=== PATIENT | female | born 1975 | race Caucasian/White ===

== ENCOUNTER 2017-01-25 02:19 | Emergency (ER) | payer MEDICAID ==
[~2017-01-25] VITALS: Ht 157.5 cm; Wt 54.0 kg
[~2017-01-25 02:19] MED LIST: ATIVAN0.5 MG ORAL; CIPROFLOXACIN500 M2 ORAL; IBUPROFEN600 MG ORAL; NORCO 5-325 TA1 EACH ORAL
[2017-01-25 03:02] VITALS: BP 105/67
[2017-01-25 03:23] LABS: BASOPHILS % (AUTO) 1.3 % (0.0-2.0); LYMPHOCYTES % (AUTO) 35.8 % (20.0-45.0); MEAN CORPUSCULAR HEMOGLOBIN 30.9 PG (27.0-31.0); MEAN CORPUSCULAR HGB CONC 32.8 G/DL (32.0-36.0); MEAN CORPUSCULAR VOLUME 94 FL (80-99); MEAN PLATELET VOLUME 6.2 FL (6.5-10.1); MONOCYTES % (AUTO) 8.5 % (1.0-10.0); NEUTROPHILS % (AUTO) 52.5 % (45.0-75.0); PLATELET COUNT 267 K/UL (150-450); RED BLOOD COUNT 3.96 M/UL (4.20-5.40); RED CELL DISTRIBUTION WIDTH 12.8 % (11.6-14.8); WHITE BLOOD COUNT 7.9 K/UL (4.8-10.8)
[2017-01-25 03:43] LABS: ALANINE AMINOTRANSFERASE 9 U/L (3-33); ALBUMIN/GLOBULIN RATIO 1.6 (1.0-2.7); ANION GAP 15 (5-15); ASPARTATE AMINO TRANSFERASE 11 U/L (5-40); CALCIUM 9.2 mg/dL (8.6-10.2); CARBON DIOXIDE 25 mEQ/L (20-30); CHLORIDE 99 mEQ/L (98-107); CREATININE 0.6 mg/dL (0.5-0.9); GLOMERULAR FILTRATION RATE > 60 mL/min (>60); HEMOLYSIS 6; POTASSIUM 3.6 mEQ/L (3.4-4.9); SODIUM 139 mEQ/L (135-145); TOTAL PROTEIN 6.9 g/dL (6.6-8.7)
[2017-01-25] MEDS ORDERED: Morphine Sulfate 4mg/ml Inj IVP ONE (04:30)
--- NOTE | 2017-01-25 04:37 | Emergency Room Report ---
History of Present Illness General Chief Complaint: Headache Source: Patient Present Illness HPI 41 YOF with previous right anerysm s/p coiling presents with 1 day right sided headache with nausea/vomiting. Denies fever/chills, neck pain/stiffness, chest pain, SOB, abd pain. Feels well otherwise. Allergies: Coded Allergies: No Known Allergies (Unverified , 11/28/14) Patient History Past Medical History: other - Brain aneurysm Past Surgical History: other - Aneurysm coiling Pertinent Family History: none Social History: Denies: alcohol use, drug use, smoking Last Menstrual Period: Dec Now: No Immunizations: UTD Reviewed Nursing Documentation: PMH: Agreed, PSxH: Agreed Review of Systems All Other Systems: negative except mentioned in HPI Physical Exam Vital Signs Date Time Temp Pulse Resp B/P Pulse Ox O2 Delivery O2 Flow Rate FiO2 01/25/17 02:33 98.2 74 16 112/64 99 Room Air Sp02 EP Interpretation: reviewed, normal General Appearance: normal inspection, well appearing, no apparent distress, alert, GCS 15, non-toxic Head: normocephalic, atraumatic Eyes: bilateral eye EOMI, bilateral eye PERRL ENT: normal ENT inspection, hearing grossly normal, normal voice Neck: normal inspection, full range of motion, supple, no bony tend Respiratory: normal inspection, lungs clear, normal breath sounds, no rhonchi, no respiratory distress, no retraction, no accessory muscle use, no wheezing Cardiovascular #1: regular rate, rhythm, no edema Gastrointestinal: normal inspection, normal bowel sounds, non tender, soft, no guarding, no hernia Genitourinary: no CVA tenderness Musculoskeletal: normal inspection, back normal, normal range of motion, Alexis' s Sign negative Neurologic: normal inspection, alert, oriented x3, responsive, folder seamer automatic III-XII nml as tested, motor strength/tone normal, speech normal Psychiatric: normal inspection, judgement/insight normal, mood/affect normal Skin: normal inspection, normal color, no rash Lymphatic: normal inspection Medical Decision Making Diagnostic Impression: Primary Impression: Headache Qualified Codes: G44.209 - Tension-type headache, unspecified, not intractable ER Course Right sided headache. VSS. Afebrile CT head shows previous aneurysm coil. No acute CVA, ICH Labs: No lueks. H&H stable Patient reassured Was very anxious she had another aneurysm Analgesia provided Low suspicion for SAH or meningitis given well appearance, absence of focal neuro deficits, absence of meningismus, normal vital signs, and duration and intensity of headache. Headache resolved Neuro exam serially negative for focal deficits Vitals stable on discharge F/up with PMD with referral for Neurologist DC home Last Vital Signs Date Time Temp Pulse Resp B/P Pulse Ox O2 Delivery O2 Flow Rate FiO2 01/25/17 03:02 98.2 67 15 105/67 99 Room Air Status: improved Disposition: HOME, SELF-CARE Referrals: NOT CHOSEN [facility]/,REFERRING (PCP) JORDEN EMERY M.D. Jan 25, 2017 04:37
[2017-01-25] MEDS ORDERED: Oxycodone/Acetaminophen 5-325 ORAL ONE (04:45)
[2017-01-25 05:17] VITALS: BP 112/70
[2017-01-25 05:18] VITALS: BP 112/70
--- NOTE | 2017-01-25 09:28 | Diagnostic Imaging Report ---
Indications: Headache Technique: Spiral acquisitions obtained through the brain. Angled axial and coronal 5 x 5 mm slices were reconstructed. Total dose length product 1404 mGycm. CTDI vol(s) 70 mGy Comparison: None Findings: What are presumably aneurysm coils are seen in the right supraclinoid region. These drops streak artifact which may obscure pathology. No definite acute hemorrhage or edema, mass effect, or midline shift. Normal mcneal-white differentiation. Intact calvarium. Visualized orbits and sinuses are unremarkable. Impression: Evidence of prior aneurysm coiling Negative for acute intracranial bleed or mass effect This agrees with the preliminary interpretation provided overnight by [facility] teleradiology service. The CT scanner at [facility] is accredited by the [employer] and the scans are performed using protocols designed to limit radiation exposure to as low as reasonably achievable to attain images of sufficient resolution adequate for diagnostic evaluation.
== END 2017-01-25 05:20 | disposition home or self-care (01) ==
LOC: EMR 03:01
DX: R51 Headache (principal)
CPT/HCPCS: 36415; 70450; 80053; 85025; 96374; 99284; J2405

== ENCOUNTER 2017-02-11 01:06 | Emergency (ER) | payer MEDICAID ==
[~2017-02-11] VITALS: Ht 157.5 cm; Wt 50.8 kg
[2017-02-11 01:39] LABS: EOSINOPHILS % (AUTO) 1.2 % (0.0-3.0); LYMPHOCYTES % (AUTO) 26.1 % (20.0-45.0); MEAN CORPUSCULAR HGB CONC 32.6 G/DL (32.0-36.0); MEAN CORPUSCULAR VOLUME 95 FL (80-99); MEAN PLATELET VOLUME 5.8 FL (6.5-10.1); MONOCYTES % (AUTO) 7.1 % (1.0-10.0); NEUTROPHILS % (AUTO) 64.7 % (45.0-75.0); PLATELET COUNT 280 K/UL (150-450); RED BLOOD COUNT 4.01 M/UL (4.20-5.40); RED CELL DISTRIBUTION WIDTH 12.8 % (11.6-14.8); WHITE BLOOD COUNT 8.2 K/UL (4.8-10.8)
[2017-02-11] MEDS ORDERED: BUSPIRONE HCL5 M1 ORAL (01:40)
[2017-02-11] MEDS ORDERED: ASPIRIN325 MG ORAL (01:41)
[2017-02-11] MEDS ORDERED: EFFIENT5 MG PO (01:41)
[2017-02-11] MEDS ORDERED: VITAMIN B-121000 MCG PO (01:43)
[2017-02-11] MEDS ORDERED: VITAMIN B 6 PO (01:44)
[2017-02-11] MEDS ORDERED: LORazepam Inj 2mg/ml 1ml IV ONE (01:45)
[2017-02-11 02:05] VITALS: BP 105/64
[2017-02-11 02:15] LABS: ALANINE AMINOTRANSFERASE 9 U/L (3-33); ALBUMIN/GLOBULIN RATIO 1.6 (1.0-2.7); ANION GAP 18 (5-15); ASPARTATE AMINO TRANSFERASE 11 U/L (5-40); CALCIUM 9.3 mg/dL (8.6-10.2); CARBON DIOXIDE 24 mEQ/L (20-30); CHLORIDE 97 mEQ/L (98-107); CREATININE 0.6 mg/dL (0.5-0.9); GLOMERULAR FILTRATION RATE > 60 mL/min (>60); HEMOLYSIS 4; POTASSIUM 3.6 mEQ/L (3.4-4.9); SODIUM 139 mEQ/L (135-145); TOTAL PROTEIN 7.2 g/dL (6.6-8.7)
[2017-02-11 02:16] LABS: TROPONIN I < 0.30 ng/mL (<=0.30)
[2017-02-11 02:25] LABS: CKMB < 1.5 ng/mL (< 3.8)
[2017-02-11] MEDS ORDERED: ATIVAN0.5 MG ORAL (02:34)
[2017-02-11 02:46] VITALS: BP_SYST 105; BP_SYST 110; BP_DIAS 58; BP_DIAS 64
--- NOTE | 2017-02-11 03:02 | Emergency Room Report ---
History of Present Illness General Chief Complaint: Chest Pain Source: Patient Present Illness HPI 41-year-old female presents ED complaining of chest pain. States chest pain started tonight while at rest. Pain is midsternal, sharp, 8 out 10, nonradiating. No other aggravating or relieving factors. Denies shortness of breath. Denies smoking or drug use. Denies history of high blood pressure or diabetes. Patient has history of anxiety. Patient has been here multiple times for similar complaint. Workups have been negative. Denies any other associated symptoms Allergies: Coded Allergies: No Known Allergies (Unverified , 11/28/14) Patient History Past Medical History: psych hx Past Surgical History: none Pertinent Family History: none Social History: Denies: alcohol use, drug use, smoking Now: No Immunizations: UTD Reviewed Nursing Documentation: PMH: Agreed, PSxH: Agreed Nursing Documentation-PMH History Of Psychiatric Problem: Yes - Depression Review of Systems All Other Systems: negative except mentioned in HPI Physical Exam Vital Signs Date Time Temp Pulse Resp B/P Pulse Ox O2 Delivery O2 Flow Rate FiO2 02/11/17 01:11 98.2 87 16 125/69 96 Room Air Sp02 EP Interpretation: reviewed, normal General Appearance: no apparent distress, alert, GCS 15, non-toxic Head: normocephalic, atraumatic Eyes: bilateral eye PERRL, bilateral eye normal inspection ENT: hearing grossly normal, normal pharynx, no angioedema, normal voice Neck: full range of motion, supple/symm/no masses Respiratory: chest non-tender, lungs clear, normal breath sounds, speaking full sentences Cardiovascular #1: regular rate, rhythm, no edema Cardiovascular #2: 2+ carotid (R), 2+ carotid (L), 2+ radial (R), 2+ radial (L) , 2+ dorsalis pedis (R), 2+ dorsalis pedis (L) Gastrointestinal: normal bowel sounds, non tender, soft, non-distended, no guarding, no rebound Rectal: deferred Genitourinary: normal inspection, no CVA tenderness Musculoskeletal: back normal, gait/station normal, normal range of motion, non- tender Neurologic: alert, oriented x3, responsive, motor strength/tone normal, sensory intact, speech normal Psychiatric: judgement/insight normal, memory normal, no suicidal/homicidal ideation, anxious Reflexes: 3+ bicep (R), 3+ bicep (L), 3+ tricep (R), 3+ tricep (L), 3+ knee (R) , 3+ knee (L) Skin: normal color, no rash, warm/dry, well hydrated Lymphatic: no adenopathy Medical Decision Making Diagnostic Impression: Primary Impression: Chest pain Qualified Codes: R07.9 - Chest pain, unspecified Additional Impression: Anxiety ER Course Hospital Course 41-year-old F presents ED complaining of chest pain Differential diagnoses include: Rib fracture, FL/unstable angina, contusion, muscle strain Clinical course Patient placed on stretcher. After initial history and physical I ordered labs , EKG, chest x-ray. given ativan labs reviewed- all electrolytes normal, troponins negative, no leukocytosis, hemoglobin/hematocrit stable EKG - NSR, no acute changes Chest x-ray-no cardiomegaly, no rib fracture, no pneumothorax, no acute process per HEART score, patient is at low risk for acute event given lack of risk factors. Patient can be safely discharged to home pending outpatient followup. Patient has been here multiple times for similar presentation. Workups have been negative I. I feel this is a highly complex case requiring extensive working including EKG/Rhythm strip, Xray/CT/US, Blood/urine lab work, repeat exams while in ED, and administration of strong opiates/narcotics for pain control, admission to hospital or close patient follow up. Diagnosis - chest pain, anxiety Stable and discharged to home with Rx ativan. Instructed to followup with PMD. Return to ED if symptoms recur or worsen Labs Test 02/11/17 01:26 White Blood Count 8.2 K/UL (4.8-10.8) Red Blood Count 4.01 M/UL (4.20-5.40) Hemoglobin 12.4 G/DL (12.0-16.0) Hematocrit 38.1 % (37.0-47.0) Mean Corpuscular Volume 95 FL (80-99) Mean Corpuscular Hemoglobin 31.0 PG (27.0-31.0) Mean Corpuscular Hemoglobin Concent 32.6 G/DL (32.0-36.0) Red Cell Distribution Width 12.8 % (11.6-14.8) Platelet Count 280 K/UL (150-450) Mean Platelet Volume 5.8 FL (6.5-10.1) Neutrophils (%) (Auto) 64.7 % (45.0-75.0) Lymphocytes (%) (Auto) 26.1 % (20.0-45.0) Monocytes (%) (Auto) 7.1 % (1.0-10.0) Eosinophils (%) (Auto) 1.2 % (0.0-3.0) Basophils (%) (Auto) 1.0 % (0.0-2.0) Sodium Level 139 mEQ/L (135-145) Potassium Level 3.6 mEQ/L (3.4-4.9) Chloride Level 97 mEQ/L (98-107) Carbon Dioxide Level 24 mEQ/L (20-30) Anion Gap 18 (5-15) Blood Urea Nitrogen 10 mg/dL (7-23) Creatinine 0.6 mg/dL (0.5-0.9) Estimat Glomerular Filtration Rate > 60 mL/min (>60) Glucose Level 119 mg/dL (74-106) Calcium Level 9.3 mg/dL (8.6-10.2) Total Bilirubin 0.3 mg/dL (0.0-1.2) Aspartate Amino Transf (AST/SGOT) 11 U/L (5-40) Alanine Aminotransferase (ALT/SGPT) 9 U/L (3-33) Alkaline Phosphatase 51 U/L (35-104) Total Creatine Kinase 51 U/L (26-140) Creatine Kinase MB < 1.5 ng/mL (< 3.8) Creatine Kinase MB Relative Index 2.9 Troponin I < 0.30 ng/mL (<=0.30) Total Protein 7.2 g/dL (6.6-8.7) Albumin 4.5 g/dL (3.5-5.2) Globulin 2.7 g/dL Albumin/Globulin Ratio 1.6 (1.0-2.7) EKG Diagnostic Results Rate: normal Rhythm: NSR ST Segments: no acute changes ASA given to the pt in ED: No Rhythm Strip Diag. Results EP Interpretation: yes Rhythm: NSR, no PVC's, no ectopy Last Vital Signs Date Time Temp Pulse Resp B/P Pulse Ox O2 Delivery O2 Flow Rate FiO2 02/11/17 02:46 98.2 71 16 105/64 96 Room Air Status: improved Disposition: HOME, SELF-CARE Condition: Stable Scripts Lorazepam* (ATIVAN*) 0.5 Mg Tablet 0.5 MG ORAL THREE TIMES A DAY, #20 TAB Prov: TAMIKA MELENDREZ M.D. 02/11/17 Referrals: NOT CHOSEN [facility]/,REFERRING (PCP) Patient Instructions: Nonspecific Chest Pain TAMIKA MELENDREZ M.D. Feb 11, 2017 03:02
--- NOTE | 2017-02-11 10:43 | Diagnostic Imaging Report ---
Clinical history: Chest pain Technique: Portable AP chest radiograph was obtained. Comparison: 04/14/15. Findings: The lungs are well inflated and clear. There is no pneumonia or pulmonary edema. There is no pleural effusion or pneumothorax. The cardiac and mediastinal silhouettes are normal in appearance. The bony thorax is unremarkable. There is no significant interval change in the interval, allowing for differences in technique and positioning. Impression: No acute cardiopulmonary process.
--- NOTE | 2017-02-13 00:02 | Cardiology Report ---
APPROVED REPORT EKG Measurement Heart [id number] Normal sinus rhythm Possible Left atrial enlargement Nonspecific ST and T wave abnormality Abnormal ECG
== END 2017-02-11 02:54 | disposition home or self-care (01) ==
LOC: EMR 01:22
DX: R07.89 Other chest pain (principal); F41.9 Anxiety disorder, unspecified; F32.9 Major depressive disorder, single episode, unspecified
CPT/HCPCS: 36415; 71010; 80053; 82550; 82553; 84484; 85025; 93005; 96374

== ENCOUNTER 2017-11-06 07:32 | Emergency (ER) | payer MEDICAID, OTHER ==
[~2017-11-06] VITALS: Ht 157.5 cm; Wt 68.0 kg
[~2017-11-06 07:32] MED LIST changes: +ASPIRIN325 MG ORAL; +BUSPIRONE HCL5 M1 ORAL; +EFFIENT5 MG PO; +VITAMIN B 6 PO; +VITAMIN B-121000 MCG PO
[2017-11-06 07:34] VITALS: BP 107/58
--- NOTE | 2017-11-06 07:58 | Emergency Room Report ---
History of Present Illness General Chief Complaint: Headache Source: Patient Present Illness HPI 42-year-old female, history of left-sided aneurysm status post coiling of December 2016, with history of chronic headaches, p/w LOONEY for 3 days. Patient describes LOONEY as gradual in onset, throbbing in nature, localized to left side, non-radiating, intermittent, denies photophobia, phonophobia. Patient has a history of headaches and states this LOONEY feels similar to previous episodes, except as stronger. This is not the worst headache she has ever had. Also states mild left-sided blurry vision, which usually happens with her headaches. Patient has still been able to eat drink, ambulate without difficulty. Denies fever, chills, neck pain, motor/sensory weakness. Allergies: Coded Allergies: No Known Allergies (Unverified , 11/28/14) Patient History Past Medical History: see triage record Past Surgical History: none Pertinent Family History: none Last Menstrual Period: 10/21/17 Reviewed Nursing Documentation: PMH: Agreed, PSxH: Agreed Nursing Documentation-PMH Hx Neurological Problems: Yes - Aneurism with crany 12/2016 Review of Systems All Other Systems: negative except mentioned in HPI Physical Exam Vital Signs Date Time Temp Pulse Resp B/P (MAP) Pulse Ox O2 Delivery O2 Flow Rate FiO2 11/06/17 07:34 98.1 81 16 107/58 98 Room Air Sp02 EP Interpretation: reviewed, normal General Appearance: alert, GCS 15, non-toxic, mild distress, other - Conversing appropriately at bedside Head: normocephalic, atraumatic Eyes: bilateral eye normal inspection, bilateral eye PERRL, bilateral eye EOMI ENT: normal ENT inspection, normal pharynx, normal voice, moist mucus membranes Neck: normal inspection, full range of motion, supple Respiratory: normal inspection, lungs clear, normal breath sounds, no respiratory distress, no retraction, no wheezing, speaking full sentences, chest symmetrical Cardiovascular #1: normal inspection, regular rate, rhythm, no edema, normal capillary refill Cardiovascular #2: 2+ radial (R), 2+ radial (L) Gastrointestinal: normal inspection, non tender, soft, non-distended, no guarding Musculoskeletal: normal inspection, back normal, normal range of motion, non- tender Neurologic: normal inspection, alert, oriented x3, responsive, cheese maker III-XII nml as tested, motor strength/tone normal, sensory intact, cerebellar normal, normal gait, speech normal Psychiatric: normal inspection, judgement/insight normal, memory normal Skin: normal inspection, normal color, no rash, warm/dry, well hydrated, normal turgor Medical Decision Making Diagnostic Impression: Primary Impression: Headache ER Course 42-year-old female, history of left-sided aneurysm status post coiling December 2016, presenting with headache DDX: Primary LOONEY such as migraine, tension LOONEY, cluster. vs. dehydration Other serious diagnoses on differential such as intracranial bleed/sah Low suspicion for meningitis/encephalitis, no meningismus, patient has no fever. There are no neurological signs/symptoms/findings on physical exam and patient appears nontoxic. Plan: Pain control, CT head ER course: Patient feels much better with meds. Patient continues to appear nontoxic, aox3, no neurologic symptoms. CT Head neg Disposition: Patient will be discharged to home. Patient instructed to follow up with primary care doctor within 5 days. Patient also instructed to follow up with a neurologist within 1 week. Strict return precautions discussed with patient such as severe/worsening headache, nausea, vomiting, fever chills, neck pain. Patient verbalized understanding. Please note that this Emergency Department Report was dictated using [employer] survey worker technology software, occasionally this can lead to erroneous entry secondary to interpretation by the dictation equipment. Laboratory Tests Test 11/06/17 08:11 11/06/17 08:25 White Blood Count 5.9 K/UL (4.8-10.8) Red Blood Count 4.04 M/UL (4.20-5.40) L Hemoglobin 11.8 G/DL (12.0-16.0) L Hematocrit 36.2 % (37.0-47.0) L Mean Corpuscular Volume 89 FL (80-99) Mean Corpuscular Hemoglobin 29.2 PG (27.0-31.0) Mean Corpuscular Hemoglobin Concent 32.6 G/DL (32.0-36.0) Red Cell Distribution Width 14.0 % (11.6-14.8) Platelet Count 260 K/UL (150-450) Mean Platelet Volume 6.0 FL (6.5-10.1) L Neutrophils (%) (Auto) 55.1 % (45.0-75.0) Lymphocytes (%) (Auto) 33.5 % (20.0-45.0) Monocytes (%) (Auto) 7.1 % (1.0-10.0) Eosinophils (%) (Auto) 2.9 % (0.0-3.0) Basophils (%) (Auto) 1.4 % (0.0-2.0) Prothrombin Time 9.9 SEC (9.30-11.50) Prothrombin Time INR 0.9 (0.9-1.1) PTT 28 SEC (23-33) Sodium Level 140 MMOL/L (136-145) Potassium Level 3.6 MMOL/L (3.5-5.1) Chloride Level 105 MMOL/L (98-107) Carbon Dioxide Level 24 MMOL/L (21-32) Anion Gap 11 mmol/L (5-15) Blood Urea Nitrogen 9 mg/dL (7-18) Creatinine 0.7 MG/DL (0.55-1.30) Estimate Glomerular Filtration Rate > 60 mL/min (>60) Glucose Level 112 MG/DL (74-106) H Calcium Level 7.7 MG/DL (8.5-10.1) L Total Bilirubin 0.2 MG/DL (0.2-1.0) Aspartate Amino Transferase (AST) 12 U/L (15-37) L Alanine Aminotransferase (ALT) 16 U/L (12-78) Alkaline Phosphatase 52 U/L (46-116) Total Protein 7.3 G/DL (6.4-8.2) Albumin 3.4 G/DL (3.4-5.0) Globulin 3.9 g/dL Albumin/Globulin Ratio 0.9 (1.0-2.7) L Urine Color Pale yellow Urine Appearance Clear Urine pH 6.5 (4.5-8.0) Urine Specific [place] 1.005 (1.005-1.035) Urine Protein Negative (NEGATIVE) Urine Glucose (UA) Negative (NEGATIVE) Urine Ketones Negative (NEGATIVE) Urine Occult Blood 1+ (NEGATIVE) H Urine Nitrite Negative (NEGATIVE) Urine Bilirubin Negative (NEGATIVE) Urine Urobilinogen Normal MG/DL (0.0-1.0) Urine Leukocyte Esterase Negative (NEGATIVE) Urine RBC 0-2 /HPF (0 - 2) Urine WBC 0 /HPF (0 - 2) Urine Squamous Epithelial Cells Occasional /LPF Urine Bacteria Occasional /HPF (NONE) Urine HCG, Qualitative Negative CT/MRI/US Diagnostic Results CT/MRI/US Diagnostic Results : Imaging Test Ordered: CT Head Impression Findings: Rounded metallic focus again noted right parasellar region consistent with previous aneurysm coil. This was seen previously as well. Streak artifact limits evaluation of surrounding anatomy. The size and configuration of the cortical sulci, basal cisterns, and ventricles are within normal limits for age. There is no mass effect, midline shift, or edema identified. There is no evidence of acute hemorrhage or abnormal intra-axial or extra-axial fluid collections. The bones and soft tissues are unremarkable. Impression: No mass effect, edema or acute bleed. Aneurysm coil Last Vital Signs Date Time Temp Pulse Resp B/P (MAP) Pulse Ox O2 Delivery O2 Flow Rate FiO2 11/06/17 07:34 98.1 81 16 107/58 98 Room Air Disposition: HOME, SELF-CARE Condition: Improved Moncho Rubio M.D. Nov 06, 2017 07:58
[2017-11-06] MEDS ORDERED: Morphine Sulfate 4mg/ml Inj IVP ONE (08:00)
[2017-11-06 08:34] LABS: BASOPHILS % (AUTO) 1.4 % (0.0-2.0); EOSINOPHILS % (AUTO) 2.9 % (0.0-3.0); LYMPHOCYTES % (AUTO) 33.5 % (20.0-45.0); MEAN CORPUSCULAR HEMOGLOBIN 29.2 PG (27.0-31.0); MEAN CORPUSCULAR HGB CONC 32.6 G/DL (32.0-36.0); MEAN CORPUSCULAR VOLUME 89 FL (80-99); MONOCYTES % (AUTO) 7.1 % (1.0-10.0); NEUTROPHILS % (AUTO) 55.1 % (45.0-75.0); PLATELET COUNT 260 K/UL (150-450); RED BLOOD COUNT 4.04 M/UL (4.20-5.40); WHITE BLOOD COUNT 5.9 K/UL (4.8-10.8)
[2017-11-06 08:38] LABS: INR 0.9 (0.9-1.1); PROTHROMBIN TIME 9.9 SEC (9.30-11.50)
[2017-11-06 08:44] LABS: ANION GAP 11 mmol/L (5-15); CALCIUM 7.7 MG/DL (8.5-10.1); CARBON DIOXIDE 24 MMOL/L (21-32); CHLORIDE 105 MMOL/L (98-107); CREATININE 0.7 MG/DL (0.55-1.30); GLOMERULAR FILTRATION RATE > 60 mL/min (>60); POTASSIUM 3.6 MMOL/L (3.5-5.1); SODIUM 140 MMOL/L (136-145)
[2017-11-06 08:51] LABS: ALANINE AMINOTRANSFERASE 16 U/L (12-78); ALBUMIN/GLOBULIN RATIO 0.9 (1.0-2.7); ASPARTATE AMINO TRANSFERASE 12 U/L (15-37); TOTAL PROTEIN 7.3 G/DL (6.4-8.2)
--- NOTE | 2017-11-06 09:14 | Diagnostic Imaging Report ---
Indication: Headache Technique: Contiguous 5 mm thick transaxial imaging of the head obtained in a [employer] Sensation [address] scanner. Soft tissue and bone windows generated. Automatic Exposure Control was utilized. Total Dose length Product (DLP): 1354.[address] Dose Index Volume (CTDIvol): 70.38 mGy Comparison: 01/25/2017 Findings: Rounded metallic focus again noted right parasellar region consistent with previous aneurysm coil. This was seen previously as well. Streak artifact limits evaluation of surrounding anatomy. The size and configuration of the cortical sulci, basal cisterns, and ventricles are within normal limits for age. There is no mass effect, midline shift, or edema identified. There is no evidence of acute hemorrhage or abnormal intra-axial or extra-axial fluid collections. The bones and soft tissues are unremarkable. Impression: No mass effect, edema or acute bleed. Aneurysm coil The CT scanner at [facility] is accredited by the [employer] and the scans are performed using dose optimization techniques as appropriate to a performed exam including Automatic Exposure control.
[2017-11-06 09:20] LABS: APPEARANCE,URINE CLEAR; KETONES,URINE NEGATIVE (NEGATIVE); LEUKOCYTE ESTERASE ,URINE NEGATIVE (NEGATIVE); NITRITE,URINE NEGATIVE (NEGATIVE); PH,URINE 6.5 (4.5-8.0); PROTEIN,URINE NEGATIVE (NEGATIVE); UROBILINOGEN,URINE NORMAL MG/DL (0.0-1.0)
[2017-11-06 09:35] VITALS: BP 98/65
[2017-11-06 09:37] LABS: BACTERIA,URINE OCCASIONAL /HPF; RBC,URINE 0-2 /HPF (0 - 2); SQUAMOUS EPITHELIAL CELL,UR OCCASIONAL /LPF (NONE/OCC); WBC,URINE 0 /HPF (0 - 2)
[2017-11-06] MEDS ORDERED: Metoclopramide 10mg/2ml Inj IVP ONE (09:45)
[2017-11-06] MEDS ORDERED: Ketorolac 30mg Inj IV ONE (09:45)
[2017-11-06] MEDS ORDERED: DiphenhydrAMINE 50mg/ml Inj IVP ONE (09:45)
[2017-11-06 11:38] VITALS: BP 101/86
[2017-11-06 11:39] VITALS: BP 101/86
== END 2017-11-06 11:39 | disposition home or self-care (01) ==
LOC: EMR 08:05
DX: R51 Headache (principal); Z86.79 Personal history of other diseases of the circulatory system; Z98.890 Other specified postprocedural states
CPT/HCPCS: 36415; 70450; 80053; 81003; 81025; 85025; 85610; 85730; 96361; 96374; 96375; 99284; J1200; J1885; J2270; J2405; J2765

== ENCOUNTER 2018-03-28 23:46 | Emergency (ER) | payer OTHER ==
[~2018-03-28] VITALS: Ht 157.5 cm; Wt 68.0 kg
[2018-03-29 00:05] VITALS: BP 117/66
--- NOTE | 2018-03-29 01:42 | Emergency Room Report ---
History of Present Illness General Chief Complaint: Nausea Source: Patient Present Illness HPI 42yo F p/w headache and nausea gradual onset this afternoon, LOONEY is L sided, no vomiting, she's had this headache before Has not tried any headache meds, denies Numbness, tingling, slurred speech, weakness, syncope Allergies: Coded Allergies: No Known Allergies (Unverified , 11/28/14) Patient History Past Medical History: see triage record Last Menstrual Period: 03/09/18 Now: No Reviewed Nursing Documentation: PMH: Agreed; PSxH: Agreed Nursing Documentation-PMH Past Medical History: No History, Except For Hx Neurological Problems: Yes - Aneurism with crany 12/2016 Hx Cerebrovascular Accident: Yes - 12/29 Review of Systems All Other Systems: negative except mentioned in HPI Physical Exam Vital Signs Date Time Temp Pulse Resp B/P (MAP) Pulse Ox O2 Delivery O2 Flow Rate FiO2 03/28/18 23:49 98.6 75 14 125/66 97 Room Air 98.6 Sp02 EP Interpretation: reviewed, normal General Appearance: no apparent distress, alert, non-toxic Head: normocephalic Eyes: bilateral eye normal inspection, bilateral eye PERRL, bilateral eye EOMI ENT: normal ENT inspection, hearing grossly normal, normal pharynx, no angioedema, normal voice, moist mucus membranes Neck: normal inspection, full range of motion, supple, supple/symm/no masses Respiratory: chest non-tender, lungs clear, normal breath sounds, chest symmetrical, palpation of chest normal Cardiovascular #1: normal peripheral pulses, regular rate, rhythm Cardiovascular #2: 2+ radial (R), 2+ radial (L) Gastrointestinal: normal inspection, non tender, soft, no mass, no guarding, no rebound Rectal: deferred Genitourinary: normal inspection, no CVA tenderness Musculoskeletal: back normal, gait/station normal, normal range of motion Neurologic: alert, responsive, mineral ore processing labourer III-XII nml as tested, motor strength/tone normal, sensory intact, speech normal Psychiatric: judgement/insight normal, mood/affect normal Skin: normal color, no rash, warm/dry, normal turgor Lymphatic: no adenopathy Medical Decision Making Diagnostic Impression: Primary Impression: Headache ER Course Patient not was sudden onset, worst headache of life, actually this is very consistent with previous headaches she's had, her head CT is negative for hemorrhage, and she has aneurysm clips in place again, will discharge home CT/MRI/US Diagnostic Results CT/MRI/US Diagnostic Results : Imaging Test Ordered: ct head Impression aneurysm clip in place, no acute hemorrhage or abnormality Last Vital Signs Date Time Temp Pulse Resp B/P (MAP) Pulse Ox O2 Delivery O2 Flow Rate FiO2 03/29/18 00:05 98.6 66 12 117/66 97 Room Air 98.6 Disposition: HOME, SELF-CARE Referrals: [facility],REFERRING (PCP) KADIE NEWTON M.D March 29, 2018 01:42
[2018-03-29] MEDS ORDERED: Ketorolac 30mg Inj IM ONE (02:00)
[2018-03-29] MEDS ORDERED: REGLAN10 MG ORAL (02:03)
[2018-03-29 02:19] VITALS: BP 117/66
--- NOTE | 2018-03-29 09:30 | Diagnostic Imaging Report ---
Indications: An 8 x 4 hours Technique: Spiral acquisitions obtained through the brain. Angled axial and coronal 5 x 5 mm slices were reconstructed. Total dose length product 1319.78 mGycm. CTDI vol(s) 70.38 mGy. Dose reduction achieved using automated exposure control Comparison: 11/06/2017 Findings: Again demonstrated are supraclinoid aneurysm coils to the right of midline as well as a stent within the right carotid siphon. No acute intracranial hemorrhage or edema, mass effect, or midline shift. Normal mcneal-white differentiation. Normal-sized ventricles and extra-axial CSF spaces. Intact calvarium. Visualized orbits and sinuses are unremarkable. Findings are unchanged. Impression: Right-sided aneurysm coils and carotid siphon stent again demonstrated Negative for acute intracranial bleed or mass effect This agrees with the preliminary interpretation provided overnight by [facility]. The CT scanner at [facility] is accredited by the [employer] and the scans are performed using protocols designed to limit radiation exposure to as low as reasonably achievable to attain images of sufficient resolution adequate for diagnostic evaluation.
== END 2018-03-29 02:21 | disposition home or self-care (01) ==
LOC: EMR 03-29 00:11
DX: R51 Headache (principal); Z86.73 Personal history of transient ischemic attack (TIA), and cerebral infarction without residual deficits
CPT/HCPCS: 70450; 99284

== ENCOUNTER 2018-08-12 21:59 | Emergency (ER) | payer OTHER ==
[~2018-08-12] VITALS: Ht 157.5 cm; Wt 68.0 kg
[~2018-08-12 21:59] MED LIST changes: +REGLAN10 MG ORAL
--- NOTE | 2018-08-12 22:25 | Emergency Room Report ---
History of Present Illness General Chief Complaint: Headache Source: Patient Present Illness HPI Is a 42-year-old female with a history of brain aneurysm requiring coiling. This was in December 2016. She presents with 3 day history of right-sided headache. Painful to touch. Similar symptom when she had her aneurysm. Denies any fever chills denies any focal deficit. Also with right groin pain that she had secondary to angiogram done in 2017. No nausea no vomiting fever chills. Pain was gradual. No relief with aspirin. Pain is 9 out of 10. She took aspirin without relief. Allergies: Coded Allergies: No Known Allergies (Unverified , 11/28/14) Patient History Past Medical History: see triage record, old chart reviewed Past Surgical History: other Pertinent Family History: none Social History: Denies: smoking Last Menstrual Period: 08/12/2018 Now: No Immunizations: other Reviewed Nursing Documentation: PMH: Agreed; PSxH: Agreed Nursing Documentation-PMH Past Medical History: No History, Except For Hx Neurological Problems: Yes - Aneurism with crany 12/2016 Hx Cerebrovascular Accident: Yes - brain aneurysm 2017 Review of Systems Eye: Denies: eye pain, blurred vision ENT: Denies: ear pain, nose congestion, throat swelling Respiratory: Denies: cough, shortness of breath Cardiovascular: Denies: chest pain, palpitations Gastrointestinal: Denies: abdominal pain, diarrhea, nausea, vomiting Musculoskeletal: Denies: back pain, joint pain Skin: Denies: rash Neurological: Reports: headache; Denies: numbness Endocrine: Denies: increased thirst, increased urine Hematologic/Lymphatic: Denies: easy bruising All Other Systems: negative except mentioned in HPI Physical Exam Vital Signs Date Time Temp Pulse Resp B/P (MAP) Pulse Ox O2 Delivery O2 Flow Rate FiO2 08/12/18 22:11 98.3 75 18 124/77 97 Room Air 98.2 vitals normal Sp02 EP Interpretation: reviewed, normal General Appearance: well appearing, no apparent distress, alert Head: normocephalic, atraumatic Eyes: bilateral eye PERRL, bilateral eye EOMI ENT: hearing grossly normal, normal pharynx Neck: full range of motion, supple, no meningismus Respiratory: chest non-tender, lungs clear, normal breath sounds Cardiovascular #1: regular rate, rhythm, no murmur Gastrointestinal: normal bowel sounds, non tender, no mass, no organomegaly, no bruit, non-distended, other - Right groin with mild tenderness. No hernia palpated. No thrill or aneurysm palpated. Musculoskeletal: back normal, gait/station normal, normal range of motion Psychiatric: anxious Skin: warm/dry Medical Decision Making Diagnostic Impression: Primary Impression: Headache Qualified Codes: R51 - Headache Additional Impression: Anxiety ER Course Patient with headache. No evidence of bleed or mass effect. Better now. We' ll discharge home. CT/MRI/US Diagnostic Results CT/MRI/US Diagnostic Results : Imaging Test Ordered: CT head Impression negative per radiologist Last Vital Signs Date Time Temp Pulse Resp B/P (MAP) Pulse Ox O2 Delivery O2 Flow Rate FiO2 08/12/18 22:11 98.3 75 18 124/77 97 Room Air 98.2 Status: improved Disposition: HOME, SELF-CARE Condition: Stable Scripts Ibuprofen* (MOTRIN*) 600 Mg Tablet 600 MG ORAL THREE TIMES A DAY, #30 TAB 0 Refills Prov: Paddy Kline MD 08/12/18 Referrals: [facility]ERR[facility] (PCP) Patient Instructions: Migraine Headache Additional Instructions: Follow-up with your doctor in 7 days. You may knee referred to see a neurologist or headache specialist. Return of worse. Paddy Kline MD Aug 12, 2018 22:25
[2018-08-12 22:30] VITALS: BP 124/77
[2018-08-12] MEDS ORDERED: Morphine Sulfate 2mg/ml Inj IM ONE (22:30)
[2018-08-12] MEDS ORDERED: IBUPROFEN600 MG ORAL (22:53)
[2018-08-12 23:00] VITALS: BP 124/77
--- NOTE | 2018-08-13 11:04 | Diagnostic Imaging Report ---
Indications: Headache, history of brain aneurysm, right-sided headache Technique: Spiral acquisitions obtained through the brain. Angled axial and coronal 5 x 5 mm slices were reconstructed. Total dose length product 1290.75 mGycm. CTDI vol(s) 70.38 mGy. Dose reduction achieved using automated exposure control Comparison: 03/29/2018 Findings: Again demonstrated are right supraclinoid aneurysm coils, which throw off streak artifact which could obscure pathology. No evidence of acute intracranial hemorrhage nor edema. No mass effect nor midline shift. Normal mcneal-white differentiation. Normal-sized ventricles and extra axial CSF spaces. Intact calvarium. Large right bello bullosa. Mastoids are clear. Sinuses are clear. The included orbits are unremarkable Impression: Right supraclinoid aneurysm coils again demonstrated. No definite acute intracranial bleed, mass effect, or significant interim change from 03/29/2018 This agrees with the preliminary interpretation provided overnight by Dr. Jarrell The CT scanner at [facility] is accredited by the [employer] and the scans are performed using protocols designed to limit radiation exposure to as low as reasonably achievable to attain images of sufficient resolution adequate for diagnostic evaluation.
== END 2018-08-12 23:03 | disposition home or self-care (01) ==
LOC: EMR 22:15
DX: R51 Headache (principal); F41.9 Anxiety disorder, unspecified
CPT/HCPCS: 70450; 96372; 99284; J2270

== ENCOUNTER 2019-05-29 21:48 | Emergency (ER) | payer OTHER ==
[~2019-05-29] VITALS: Ht 157.5 cm; Wt 66.2 kg
[2019-05-29 22:20] VITALS: BP 124/74
--- NOTE | 2019-05-29 22:20 | NUR ---
ER Nurse Note: Pt coming from home c/o 08/21 throbbing pain on LT side of head since 05/28. Pt hx of stroke 2 yrs ago; stroke test done, no s/s of stroke at this time. Pt a&xo4, VSS, no signs of distress. Will continue to montior.
--- NOTE | 2019-05-29 22:26 | Emergency Room Report ---
History of Present Illness General Chief Complaint: Headache Source: Patient Present Illness HPI This is a 43-year-old female with a history of aneurysm status post coiling. She presents with treatment of headache. She get this frequently. Is been ongoing for the last 3 days. Throbbing in nature. Worse with anxiety. Pain is 8 out of 10. No focal deficit. Similar to previous headache. Gradual onset. Denies any other complaint. She has multiple CT scan here of her head and has been negative. Allergies: Coded Allergies: No Known Allergies (Unverified , 11/28/14) Patient History Past Medical History: see triage record, old chart reviewed Past Surgical History: other Pertinent Family History: none Social History: Denies: smoking Now: No Immunizations: other Reviewed Nursing Documentation: PMH: Agreed; PSxH: Agreed Nursing Documentation-PMH Past Medical History: No History, Except For Hx Neurological Problems: Yes - Aneurism with crany 12/2016 Hx Cerebrovascular Accident: Yes - 2yrs ago Review of Systems Eye: Denies: eye pain, blurred vision ENT: Denies: ear pain, nose congestion, throat swelling Respiratory: Denies: cough, shortness of breath Cardiovascular: Denies: chest pain, palpitations Gastrointestinal: Denies: abdominal pain, diarrhea, nausea, vomiting Musculoskeletal: Denies: back pain, joint pain Skin: Denies: rash Neurological: Reports: headache; Denies: numbness Endocrine: Denies: increased thirst, increased urine Hematologic/Lymphatic: Denies: easy bruising All Other Systems: negative except mentioned in HPI Physical Exam Vital Signs Date Time Temp Pulse Resp B/P (MAP) Pulse Ox O2 Delivery O2 Flow Rate FiO2 05/29/19 22:08 98.6 71 18 124/74 (91) 98 Room Air Vitals normal Sp02 EP Interpretation: reviewed, normal General Appearance: well appearing, no apparent distress, alert Head: normocephalic, atraumatic Eyes: bilateral eye PERRL, bilateral eye EOMI ENT: hearing grossly normal, normal pharynx Neck: full range of motion, supple, no meningismus Respiratory: chest non-tender, lungs clear, normal breath sounds Cardiovascular #1: regular rate, rhythm, no murmur Gastrointestinal: normal bowel sounds, non tender, no mass, no organomegaly, no bruit, non-distended Musculoskeletal: back normal, gait/station normal, normal range of motion Psychiatric: mood/affect normal Medical Decision Making Diagnostic Impression: Primary Impression: Headache Qualified Codes: R51 - Headache ER Course This patient presents with headache. No focal deficit or change in nature of her headache to indicate bleed or TIA or CVA. No evidence of any meningitis. I see no need for repeat CT scan. Last Vital Signs Date Time Temp Pulse Resp B/P (MAP) Pulse Ox O2 Delivery O2 Flow Rate FiO2 05/29/19 22:08 98.6 71 18 124/74 (91) 98 Room Air Status: improved Disposition: HOME, SELF-CARE Condition: Stable Scripts Ibuprofen* (MOTRIN*) 600 Mg Tablet 600 MG ORAL THREE TIMES A DAY, #30 TAB 0 Refills Prov: Paddy Kline MD 05/29/19 Amitriptyline HCl (ELAVIL*) 75 Mg Tablet 75 MG ORAL BEDTIME, #30 TAB Prov: Paddy Kline MD 05/29/19 Patient Instructions: Migraine Headache Additional Instructions: Follow-up with your doctor in 7 days. Return if symptoms worsen. Paddy Kline MD May 29, 2019 22:26
[2019-05-29] MEDS ORDERED: AMITRIPTYLINE75 MG ORAL (22:28)
[2019-05-29] MEDS ORDERED: IBUPROFEN600 MG ORAL (22:28)
[2019-05-29] MEDS ORDERED: HYDROcodone/Acetamin 5/325 tab ORAL ONE (22:30)
[2019-05-29 22:40] VITALS: BP 124/74
--- NOTE | 2019-05-29 22:40 | NUR ---
ER Nurse Note: Pt seen, treated, medically cleared for discharge by ERMD. Discharge instuctions and prescriptions given with repeat verbalization by pt. Emphasized to follow up with primay care provider; take whole course of medication. All orders completed per ERMD orders. Pt a&ox4, VSS, no signs of distress. ID band removed. Pt left with all belongings, left with own transportation.
== END 2019-05-29 22:40 | disposition home or self-care (01) ==
LOC: EMR 22:24
DX: R51 Headache (principal); Z86.73 Personal history of transient ischemic attack (TIA), and cerebral infarction without residual deficits; Z86.79 Personal history of other diseases of the circulatory system
CPT/HCPCS: 99282

== ENCOUNTER 2019-10-21 23:18 | Emergency (ER) | payer OTHER ==
[~2019-10-21] VITALS: Ht 152.4 cm; Wt 68.0 kg
[~2019-10-21 23:18] MED LIST changes: +AMITRIPTYLINE75 MG ORAL
[2019-10-21 23:41] VITALS: BP 115/68
[2019-10-22] MEDS ORDERED: ONDANSETRON ODT4 MG BC (00:29)
[2019-10-22] MEDS ORDERED: IBUPROFEN600 MG ORAL (00:29)
[2019-10-22 00:35] VITALS: BP 102/60
--- NOTE | 2019-10-22 02:50 | Emergency Room Report ---
History of Present Illness General Chief Complaint: Chest Pain Source: Patient Present Illness HPI 44-year-old female presents ED for evaluation. Complaining of chest pain. Started tonight. Midsternal, 7 out of 10, dull, radiating to back. Denies shortness of breath. Denies smoking or drug use. No other aggravating relieving factors. Denies any other associated symptoms Allergies: Coded Allergies: No Known Allergies (Unverified , 11/28/14) Patient History Past Medical History: CVA/TIA Past Surgical History: none Pertinent Family History: none Social History: Denies: smoking, alcohol use, drug use Last Menstrual Period: 10/13/19 Now: No : 4 Para: 4 Immunizations: UTD Reviewed Nursing Documentation: PMH: Agreed; PSxH: Agreed Nursing Documentation-PMH Past Medical History: No History, Except For Hx Neurological Problems: Yes - Aneurism with crany 12/2016 Hx Cerebrovascular Accident: Yes - 2017 Review of Systems All Other Systems: negative except mentioned in HPI Physical Exam Vital Signs Date Time Temp Pulse Resp B/P (MAP) Pulse Ox O2 Delivery O2 Flow Rate FiO2 10/21/19 23:26 98.2 77 16 115/68 (84) 97 Room Air Sp02 EP Interpretation: reviewed, normal General Appearance: no apparent distress, alert, GCS 15, non-toxic Head: normocephalic, atraumatic Eyes: bilateral eye normal inspection, bilateral eye PERRL ENT: hearing grossly normal, normal pharynx, no angioedema, normal voice Neck: full range of motion, supple/symm/no masses Respiratory: lungs clear, normal breath sounds, speaking full sentences, other - reproducible midsternal pain Cardiovascular #1: regular rate, rhythm, no edema Cardiovascular #2: 2+ carotid (R), 2+ carotid (L), 2+ radial (R), 2+ radial (L) , 2+ dorsalis pedis (R), 2+ dorsalis pedis (L) Gastrointestinal: normal bowel sounds, non tender, soft, non-distended, no guarding, no rebound Rectal: deferred Genitourinary: normal inspection, no CVA tenderness Musculoskeletal: normal range of motion, gait/station normal, tender - thoracic paraspinal pain Neurologic: alert, motor strength/tone normal, oriented x3, sensory intact, responsive, speech normal Psychiatric: judgement/insight normal, memory normal, mood/affect normal, no suicidal/homicidal ideation Reflexes: 3+ bicep (R), 3+ bicep (L), 3+ tricep (R), 3+ tricep (L), 3+ knee (R) , 3+ knee (L) Lymphatic: no adenopathy Medical Decision Making Diagnostic Impression: Primary Impression: Chest wall pain Additional Impression: Anxiety ER Course Hospital Course 44 yo F presents with chest pain Differential diagnoses include: Rib fracture, WA/unstable angina, contusion, muscle strain Clinical course Patient placed on stretcher. After initial history, exam reveals female in no acute distress. There is reproducible midsternal pain. Also pain in the upper back. Palpable. Lungs clear. Vitals stable. EKGnormal sinus rhythm no acute ischemic changes interpreted by me lclinical findings consistent with muscle strain/costochondritis. Reassurance given. Will discharge to home. States she has a PMD I. I feel this is a highly complex case requiring extensive working including EKG/Rhythm strip, Xray/CT/US, Blood/urine lab work, repeat exams while in ED, and administration of strong opiates/narcotics for pain control, admission to hospital or close patient follow up. Diagnosis - chest wall pain , anxiety Stable and discharged to home with prescription for Motrin, zofran. Instructed to followup with PMD. Return to ED if symptoms recur or worsen EKG Diagnostic Results Rate: normal Rhythm: NSR ST Segments: no acute changes ASA given to the pt in ED: No Rhythm Strip Diag. Results EP Interpretation: yes Rhythm: NSR, no PVC's, no ectopy Last Vital Signs Date Time Temp Pulse Resp B/P (MAP) Pulse Ox O2 Delivery O2 Flow Rate FiO2 10/22/19 00:35 75 18 102/60 100 Room Air 10/21/19 23:41 98.2 Status: improved Disposition: HOME, SELF-CARE Condition: Stable Scripts Ondansetron Odt* (ZOFRAN ODT*) 4 Mg Tab.rapdis 4 MG BC EVERY 6 HOURS PRN for Nausea & Vomiting, #20 TAB 0 Refills Prov: Tom Cotton MD 10/22/19 Ibuprofen* (MOTRIN*) 600 Mg Tablet 600 MG ORAL Q8H PRN for For Pain, #30 TAB 0 Refills Prov: Tom Cotton MD 10/22/19 Patient Instructions: Chest Wall Pain, [id number] Tom Cotton MD Oct 22, 2019 02:49
--- NOTE | 2019-10-22 15:21 | Cardiology Report ---
APPROVED REPORT EKG Measurement Heart [id number] Normal sinus rhythm Nonspecific ST and T wave abnormality Abnormal ECG
== END 2019-10-22 00:35 | disposition home or self-care (01) ==
LOC: EMR 23:59
DX: R07.9 Chest pain, unspecified (principal); F41.9 Anxiety disorder, unspecified; Z86.73 Personal history of transient ischemic attack (TIA), and cerebral infarction without residual deficits; M54.6 Pain in thoracic spine
CPT/HCPCS: 93005; Z7502; 99283

== ENCOUNTER 2020-08-23 21:47 | Emergency (ER) | payer OTHER ==
[~2020-08-23] VITALS: Ht 157.5 cm; Wt 63.5 kg
[~2020-08-23 21:47] MED LIST changes: +ONDANSETRON ODT4 MG BC
[2020-08-23 22:10] VITALS: BP 114/73
--- NOTE | 2020-08-23 22:10 | NUR ---
ED Nurse Note: Patient walked into ED for c/o lower abodminal/pubic pain that radiates to L flank onset 2 days ago. She reports nausea, but denies vomiting. Denies SOB, cough or dysuria. She is aaox4, breathing is normal and unlabored. She is ambulatory with steady gait. IV line established, blood drawn by RN and sent to lab. Will cont. to monitor; safety measures met.
[2020-08-23] MEDS ORDERED: Ketorolac 30mg Inj IV ONE (22:15)
--- NOTE | 2020-08-23 22:16 | Emergency Room Report ---
History of Present Illness General Chief Complaint: Pelvic Pain Source: Patient Present Illness HPI This is a 45-year-old female with no past medical history patient presents with complaint abdominal pain. Onset for 2 days. Pain localized to left lower quadrant. There is some swelling. Pain is sharp in nature. Worse with palpation. Worse with walking. Better with rest. No fever chills but no nausea no vomiting. No urinary complaint. No hematuria. Allergies: Coded Allergies: No Known Allergies (Unverified , 11/28/14) COVID-19 Screening Contact w/high risk pt: No Experienced COVID-19 symptoms?: No COVID-19 Testing performed BUSINESS REPORTER: No Patient History Past Medical History: see triage record, old chart reviewed Past Surgical History: Pertinent Family History: none Social History: Denies: smoking Last Menstrual Period: 08/13/2020 Now: No Immunizations: other Reviewed Nursing Documentation: PMH: Agreed; PSxH: Agreed Nursing Documentation-PMH Hx Neurological Problems: Yes - Aneurism with crany 12/2016 Hx Cerebrovascular Accident: Yes - 2017 Review of Systems Eye: Denies: eye pain, blurred vision ENT: Denies: ear pain, nose congestion, throat swelling Respiratory: Denies: cough, shortness of breath Cardiovascular: Denies: chest pain, palpitations Gastrointestinal: Reports: abdominal pain; Denies: diarrhea, nausea, vomiting Musculoskeletal: Denies: back pain, joint pain Skin: Denies: rash Neurological: Denies: headache, numbness Endocrine: Denies: increased thirst, increased urine Hematologic/Lymphatic: Denies: easy bruising All Other Systems: negative except mentioned in HPI Physical Exam Vital Signs Date Time Temp Pulse Resp B/P (MAP) Pulse Ox O2 Delivery O2 Flow Rate FiO2 08/23/20 21:51 98.6 79 16 114/73 (87) 99 Room Air Vitals normal Sp02 EP Interpretation: reviewed, normal General Appearance: well appearing, no apparent distress, alert Head: normocephalic, atraumatic Eyes: bilateral eye PERRL, bilateral eye EOMI ENT: hearing grossly normal, normal pharynx Neck: full range of motion, supple, no meningismus Respiratory: chest non-tender, lungs clear, normal breath sounds Cardiovascular #1: regular rate, rhythm, no murmur Gastrointestinal: normal bowel sounds, no mass, no organomegaly, no bruit, non- distended, tenderness - Lower quadrant, left Musculoskeletal: back normal, normal range of motion, gait/station normal Psychiatric: mood/affect normal Medical Decision Making Diagnostic Impression: Primary Impression: UTI (urinary tract infection) Qualified Codes: N30.00 - Acute cystitis without hematuria Additional Impression: Abdominal pain Qualified Codes: R10.32 - Left lower quadrant pain ER Course Patient presents with abdominal pain localized to the left lower quadrant/left pelvic area. CT scan unremarkable. Urinalysis positive however. Patient received antibiotics here. Will discharge home. No evidence of acute abdomen. No evidence of any torsion. CT/MRI/US Diagnostic Results CT/MRI/US Diagnostic Results : Imaging Test Ordered: CT abdomen and pelvis Impression Read by radiologist. Mildly thickened bladder wall. Left ureter is mildly dilated compared to the right with no obvious stone. Cannot exclude recently passed stone versus a sending infectious/inflammatory process. Last Vital Signs Date Time Temp Pulse Resp B/P (MAP) Pulse Ox O2 Delivery O2 Flow Rate FiO2 08/23/20 21:51 98.6 79 16 114/73 (87) 99 Room Air Status: improved Disposition: HOME, SELF-CARE Condition: Stable Scripts Ibuprofen* (MOTRIN*) 600 Mg Tablet 600 MG ORAL Q6H PRN for For Pain, #30 TAB 0 Refills Prov: Paddy Kline MD 08/23/20 Cephalexin* (KEFLEX*) 500 Mg Capsule 500 MG ORAL TID, #21 CAP Prov: Paddy Kline MD 08/23/20 Additional Instructions: Follow-up with your doctor in 7 days. Return if symptoms worsen. Paddy Kline MD Aug 23, 2020 22:16
[2020-08-23 22:32] LABS: BASOPHILS % (AUTO) 1.5 % (0.0-2.0); HEMATOCRIT 38.9 % (37.0-47.0); HEMOGLOBIN 13.1 G/DL (12.0-16.0); LYMPHOCYTES % (AUTO) 35.1 % (20.0-45.0); MEAN CORPUSCULAR VOLUME 92 FL (80-99); MONOCYTES % (AUTO) 6.6 % (1.0-10.0); NEUTROPHILS % (AUTO) 55.8 % (45.0-75.0); PLATELET COUNT 233 K/UL (150-450); RED BLOOD COUNT 4.24 M/UL (4.20-5.40); RED CELL DISTRIBUTION WIDTH 12.8 % (11.6-14.8); WHITE BLOOD COUNT 7.9 K/UL (4.8-10.8)
[2020-08-23 22:33] LABS: APPEARANCE,URINE SLIGHTLY CLOUDY; BILIRUBIN, URINE NEGATIVE (NEGATIVE); COLOR,URINE PALE YELLOW; GLUCOSE, URINE (UA) NEGATIVE (NEGATIVE); KETONES,URINE 2+ (NEGATIVE); LEUKOCYTE ESTERASE ,URINE 2+ (NEGATIVE); NITRITE,URINE NEGATIVE (NEGATIVE); PH,URINE 7 (4.5-8.0); PROTEIN,URINE NEGATIVE (NEGATIVE); UROBILINOGEN,URINE NORMAL MG/DL (0.0-1.0)
[2020-08-23 22:47] LABS: ANION GAP 9 mmol/L (5-15); BLOOD UREA NITROGEN 6 mg/dL (7-18); CALCIUM 8.8 MG/DL (8.5-10.1); CARBON DIOXIDE 24 MMOL/L (21-32); CHLORIDE 104 MMOL/L (98-107); CREATININE 0.8 MG/DL (0.55-1.30); POTASSIUM 3.3 MMOL/L (3.5-5.1); SODIUM 137 MMOL/L (136-145)
[2020-08-23 22:52] LABS: ALANINE AMINOTRANSFERASE 9 U/L (12-78); ALBUMIN 3.8 G/DL (3.4-5.0); ALBUMIN/GLOBULIN RATIO 1.3 (1.0-2.7); ALKALINE PHOSPHATASE 46 U/L (46-116); ASPARTATE AMINO TRANSFERASE 11 U/L (15-37); BILIRUBIN,TOTAL 0.3 MG/DL (0.2-1.0)
--- NOTE | 2020-08-23 22:54 | Diagnostic Imaging Report ---
EXAM: CT Abdomen and Pelvis Without Intravenous Contrast CLINICAL HISTORY: ABD PAIN TECHNIQUE: Axial computed tomography images of the abdomen and pelvis without intravenous contrast. CTDI is 4.3 mGy and DLP is 218.80 mGy-cm. One or more of the following dose reduction techniques were used: automated exposure control, adjustment of the mA and/or kV according to patient size, use of iterative reconstruction technique. COMPARISON: 2006 FINDINGS: Lung bases: No mass. No consolidation. ABDOMEN: Liver: The low-density lesions, likely cysts. Gallbladder and bile ducts: Unremarkable. Pancreas: No ductal dilation. Spleen: Unremarkable. Adrenals: Unremarkable. Kidneys and ureters: No obstructing stones. No hydronephrosis. Mildly dilated left ureter. Stomach and bowel: No bowel obstruction. No bowel wall thickening. PELVIS: Appendix: No evidence of appendicitis. Bladder: No stones. Mildly thickened. Reproductive: Prominent left ovary measuring 4.6 cm. ABDOMEN and PELVIS: Intraperitoneal space: Unremarkable. Bones/joints: No acute fractures. Soft tissues: Unremarkable. Vasculature: No abdominal aortic aneurysm. Lymph nodes: No enlarged lymph nodes. IMPRESSION: 1. Mildly thickened bladder wall, correlate with cystitis versus under distention. 2. The left ureter is mildly dilated compared to the right with no stone identified. Cannot exclude recently passed stone versus ascending infectious/inflammatory ureteritis. 3. Prominent left ovary measuring 4.6 cm. No significant free fluid.
[2020-08-23] MEDS ORDERED: IBUPROFEN600 M1 ORAL (23:07)
[2020-08-23] MEDS ORDERED: CEPHALEXIN500 MG ORAL (23:07)
[2020-08-23] MEDS ORDERED: cefTRIAXone 1 GM in NS 55 ML IVPB ONE (23:15)
[2020-08-23 23:30] VITALS: BP 115/78
--- NOTE | 2020-08-23 23:30 | NUR ---
ER DISCHARGE NOTE: Patient is cleared to be discharged per ERMD, pt is aox4, on room air, with stable vital signs. pt was given dc and prescription instructions, pt was able to verbalize understanding, pt id band and iv site removed without complications. pt is able to ambulate with steady gait. pt took all belongings.
== END 2020-08-23 23:30 | disposition home or self-care (01) ==
LOC: EMR 22:05
DX: N30.00 Acute cystitis without hematuria (principal); R10.32 Left lower quadrant pain; Z86.73 Personal history of transient ischemic attack (TIA), and cerebral infarction without residual deficits
CPT/HCPCS: 36415; 74176; 80053; 81003; 81025; 83690; 85025; 87086; 87181; 96361; 96374; 96375; J0696; J1885; J7030; Z7502; 99284